=== PATIENT | female | born 1955 | race Caucasian/White ===

== ENCOUNTER 2019-05-11 13:48 | Emergency (ER) | payer OTHER ==
[~2019-05-11] VITALS: Ht 157.5 cm; Wt 67.1 kg
[2019-05-11] MEDS ORDERED: CRESTOR20 MG (14:30)
== END 2019-05-11 16:03 | disposition home or self-care (01) ==
LOC: ER 13:48
DX: K57.90 Diverticulosis of intestine, part unspecified, without perforation or abscess without bleeding (principal); R10.32 Left lower quadrant pain